=== PATIENT | female | born 1975 | race African-American/Black ===

== ENCOUNTER 2016-09-03 07:15 | Emergency (ER) | payer SELFPAY ==
[~2016-09-03] VITALS: Ht 152.4 cm; Wt 60.0 kg
[~2016-09-03 07:15] MED LIST: AMLO5 PO; CLIN1CAP6 PO; FOLI1 PO; LEVE500 PO; LISI-360 PO; QUET100 PO; RIVA20 PO
[2016-09-03] MEDS ORDERED: SODIUM CHLOR 0.9% 1000 ML INJ 1,000 ML IV ONE (07:25)
[2016-09-03 07:27] VITALS: BP 137/94; PULSE 87; RESP 17; TEMP 98.3; O2SAT 93
[2016-09-03] MEDS ORDERED: SODIUM CHLORIDE 0.9% FLUSH 5 ML FLUSH IVF PRN ×2 (07:30)
[2016-09-03] MEDS ORDERED: PHENYTOIN INJ 1,000 MG in SODIUM CHLORIDE 0.9% INJ 100 ML IV ONE (07:30)
--- NOTE | 2016-09-03 07:34 | PD ---
HPI Chief Complaint: Seizure Time Seen by Provider: 07:24 Travel History International Travel<30 days: No (is available) Contact w/Intl Traveler<30days: No ( or) History of Present Illness HPI Patient is a 41-year-old female who presents to emergency room after possible seizure episode. Patient reports that she has history of seizures and is supposed be on Dilantin, reports that she has not been on her medications. As per EMS, patient was found by her roommate after witnessed seizure episode. Reports that patient fell off her mattress which was on the ground and had " full body shaking." Reports the episode lasted about 1 minute and resolved on its own. Patient was postictal after her seizure episode. Patient with no comments of urine. Patient reports that the last time she had a seizure was about one year ago. Patient with no other complaints. Patient denies fevers chills. Patient denies nausea vomiting. Patient denies chest pain. Patient with no other complaints. PFSH Past Medical History Hx Anticoagulant Therapy: Yes Arthritis: Yes Asthma: No Anxiety: Yes Depression: Yes Heart Rhythm Problems: Yes (Irregular heartbeat. ) Cancer: No Cardiovascular Problems: Yes High Cholesterol: No Chemotherapy: No Chest Pain: Yes Congestive Heart Failure: No Cirrhosis: Yes (LIVER) COPD: No Cerebrovascular Accident: No Diabetes: No Diminished Hearing: No Endocrine: No Gastrointestinal Disorders: Yes (HEPATITIS C) GERD: No Genitourinary: Yes (Kidney Stones ) Hepatitis: Yes (HEP C) Hiatal Hernia: Yes Hypertension: Yes Immune Disorder: No Kidney Stones: Yes Musculoskeletal: Yes (Arthritis ) Neurologic: Yes (Seizures) Psychiatric: Yes Reproductive: No Respiratory: Yes (Dyspnea ) Integumentary: Yes (ECZEMA, PSORIASIS, ) Immunizations Current: Yes Migraines: Yes Pancreatitis: Yes Radiation Therapy: No Renal Failure: No Schizophrenia: Yes Seizures: Yes (See EMR) Sickle Cell Disease: Yes (SICKLE CELL TRAIT PER PATIENT) Sleep Apnea: No Thyroid Disease: No Ulcer: Yes : 6 Para: 5 Miscarriage: 1 : 0 Ectopic : Yes (1992) Tubal Ligation: Yes (1997) Past Surgical History Abdominal Surgery: Yes (appendix, gallbladder) AICD: No Appendectomy: Yes () Arteriovenous Shunt: No Body Medical Devices: TONGUE PIERCING, NAVAL PIERCING - JEWELRY IN PLACE- UNABLE TO REMOVE Cardiac Surgery: No Cholecystectomy: Yes (2008) Ear Surgery: No Endocrine Surgery: No Eye Surgery: No Genitourinary Surgery: No Gynecologic Surgery: Yes (TUBAL, ECTOPIC) Insulin Pump: No Joint Replacement: No Oral Surgery: Yes (wisdom teeth, tonsils) Pacemaker: No Thoracic Surgery: No Tonsillectomy: Yes Other Surgery: Yes Social History Alcohol Use: Yes Tobacco Use: Yes Substance Use: Yes Allergies-Medications (Allergen,Severity, Reaction): Coded Allergies: Darvocet-N 100 (Verified Allergy, Severe, SWELLING, 07/26/16) Morphine (Verified Allergy, Severe, BREAKS OUT, 07/26/16) Motrin (Verified Allergy, Severe, ABD PAIN, 07/26/16) [place] (Verified Allergy, Severe, 07/26/16) itchingess and apparently swelling in her throat Nut Tree (Verified Allergy, Severe, 07/26/16) Solu-Medrol (Verified Allergy, Severe, BREAKS OUT, 07/26/16) Tomato (Verified Allergy, Severe, 07/26/16) *MDRO Multi-Drug Resistant Organism (Unverified Adverse Reaction, Unknown , 07/28/16) MRSA (blood/sputum) - 05/2011, (blood) - 04/2015, 03/2016; MRSA (face-07/26/16) Uncoded Allergies: NSAIDS (Allergy, Severe, SWELLING, 11/21/12) nuts (Allergy, Severe, 06/10/11) Reported Meds & Prescriptions Reported Meds & Active Scripts Active Clindamycin (Clindamycin HCl) 300 Mg Cap 450 Mg PO Q8H 10 Days Quetiapine [id number] M1 100 Mg Tab 100 Mg PO BID 7 Days Folate 1 Mg Tab (Folic Acid) 1 Mg Tab 1 Mg PO DAILY 31 Days Norvasc (Amlodipine Besylate) 5 Mg Tab 5 Mg PO DAILY 31 Days Xarelto 20 Mg T20 Mg 20 Mg Tab 20 Mg PO DAILY 70 Days Please begin this dose of Xarelto the day after you have completed twenty days of the 15mg dose of Xarelto Keppra (Levetriacetam) 500 Mg Tab 500 Mg PO Q12HR 60 Days Reported Lisinopril 10 mg (Lisinopril) 10 Mg Tab 1 Tab PO DAILY Review of Systems General / Constitutional: No: Fever Eyes: No: Visual changes HENT: No: Headaches Cardiovascular: No: Chest Pain or Discomfort Respiratory: No: Shortness of Breath Gastrointestinal: No: Abdominal Pain Genitourinary: No: Dysuria Musculoskeletal: No: Pain Skin: No Rash Neurologic: Positive: Headache, Seizures, No: Weakness Psychiatric: No: Depression Endocrine: No: Polydipsia Hematologic/Lymphatic: No: Easy Bruising Physical Exam Narrative GENERAL: No acute distress, nontoxic SKIN: Warm and dry. HEAD: Atraumatic. Normocephalic. EYES: Pupils equal and round. No scleral icterus. No injection or drainage. ENT: No nasal bleeding or discharge. Mucous membranes pink and moist. NECK: Trachea midline. No JVD. CARDIOVASCULAR: Regular rate and rhythm. No murmur appreciated. RESPIRATORY: No accessory muscle use. Clear to auscultation. Breath sounds equal bilaterally. GASTROINTESTINAL: Abdomen soft, non-tender, nondistended. Hepatic and splenic margins not palpable. MUSCULOSKELETAL: No obvious deformities. No clubbing. No cyanosis. No edema. NEUROLOGICAL: Awake and alert. No obvious cranial nerve deficits. Motor grossly within normal limits. Normal speech. Cranial nerves II-12 grossly intact with no obvious deficits PSYCHIATRIC: Appropriate mood and affect; insight and judgment normal. Data Data Last Documented VS Vital Signs Date Time Temp Pulse Resp B/P Pulse Ox O2 Delivery O2 Flow Rate FiO2 09/03/16 07:27 98.3 87 17 137/94 93 Orders Complete Blood Count With Diff (09/03/16 07:25) Phenytoin (Dilantin) (09/03/16 07:25) Drug Screen, Random Urine (09/03/16 07:25) Electrocardiogram (09/03/16 ) Blood Glucose (09/03/16 07:25) Ecg Monitoring (09/03/16 07:25) Iv Access Insert/Monitor (09/03/16 07:25) Oximetry (09/03/16 07:25) Comprehensive Metabolic Panel (09/03/16 07:25) Sodium Chloride 0.9% Flush (Ns Flush) (09/03/16 07:30) Phenytoin Inj (Dilantin Inj) (09/03/16 07:30) Ua Includes Microscopic (09/03/16 07:25) Sodium Chloride 0.9% Flush (Ns Flush) (09/03/16 07:30) Sodium Chlor 0.9% 1000 Ml Inj (Ns 1000 M (09/03/16 07:25) Ed Urine Pregnancytest Poc (09/03/16 07:25) Chest, Single Ap (09/03/16 09:30) Labs Laboratory Tests Test 09/03/16 08:00 White Blood Count 4.7 TH/MM3 Red Blood Count 3.81 MIL/MM3 Hemoglobin 12.5 GM/DL Hematocrit 36.3 % Mean Corpuscular Volume 95.2 FL Mean Corpuscular Hemoglobin 32.8 PG Mean Corpuscular Hemoglobin 34.4 % Concent Red Cell Distribution Width 15.6 % Platelet Count 339 TH/MM3 Mean Platelet Volume 7.9 FL Neutrophils (%) (Auto) 55.4 % Lymphocytes (%) (Auto) 36.7 % Monocytes (%) (Auto) 6.4 % Eosinophils (%) (Auto) 1.0 % Basophils (%) (Auto) 0.5 % Neutrophils # (Auto) 2.6 TH/MM3 Lymphocytes # (Auto) 1.7 TH/MM3 Monocytes # (Auto) 0.3 TH/MM3 Eosinophils # (Auto) 0.0 TH/MM3 Basophils # (Auto) 0.0 TH/MM3 CBC Comment DIFF FINAL Differential Comment Sodium Level 139 MEQ/L Potassium Level 4.5 MEQ/L Chloride Level 106 MEQ/L Carbon Dioxide Level 21.0 MEQ/L Anion Gap 12 MEQ/L Blood Urea Nitrogen 12 MG/DL Creatinine 1.02 MG/DL Estimat Glomerular Filtration 72 ML/MIN Rate Random Glucose 134 MG/DL Calcium Level 8.6 MG/DL Total Bilirubin 0.2 MG/DL Aspartate Amino Transf 31 U/L (AST/SGOT) Alanine Aminotransferase 28 U/L (ALT/SGPT) Alkaline Phosphatase 168 U/L Total Protein 8.2 GM/DL Albumin 3.2 GM/DL Phenytoin (Dilantin) Level LESS THAN 0.4 MCG/ML MDM Medical Decision Making Medical Screen Exam Complete: Yes Emergency Medical Condition: Yes Interpretation(s) EKG at 0741: Normal sinus rhythm at 85 beats minute, QT/QTc 382/424, nonspecific T-wave changes. No acute ST-T wave changes. Vital Signs Date Time Temp Pulse Resp B/P Pulse Ox O2 Delivery O2 Flow Rate FiO2 09/03/16 07:27 98.3 87 17 137/94 93 Differential Diagnosis Seizure, electrolyte abnormality, cephalgia, intracranial hemorrhage Narrative Course Patient is a 41-year-old female with history of seizure, presents to emergency room with possible episode of seizure this morning. Patient was found by her roommate on the ground, having "full body shaking" which lasted about 1 minute and resolved on its own. Patient did not fall from a bed, patient's mattress was on the ground and patient was sleeping on a mattress on the ground. Patient with history of seizures, reports that she is supposed to be on Dilantin but ran out of her medications. Patient placed on chemist inorganic as well as continuous pulse oximeter. Will give pt loading dose of dilantin. Plan to observe patient and ultimately discharge home on dilantin Upon chart review, patient was taking Keppra 500 mg every 12 hours for seizure, will restart pt on keppra pt with no acute distress at this time. All labs and all studies reviewed. Financial assistance was in room to help patient with outpatient follow-up. Patient is currently alert and oriented 3, patient currently at her baseline mental status. Patient will be sent home with instructions follow-up with primary care doctor and neurologist, she is to return to ER as needed. Patient stable for discharge Diagnosis Primary Impression: Seizure Patient Instructions: General Instructions Additional Instructions: Please return to ER as needed Please take your medications as prescribed Please follow-up with your primary care doctor as well as your neurologist as soon as possible Med/Other Pt SpecificInfo: Prescription(s) given Scripts Levetiracetam (Keppra)500 Mg Old201 Mg PO BID #60 TAB Ref 0 Prov:Sparkle Rosas DO 09/03/16 Disposition: 01 DISCHARGE HOME Condition: Stable Sparkle Rosas DO Sep 03, 2016 07:34
[2016-09-03 08:14] LABS: AUTOMATED NEUTROPHIL # 2.6 TH/MM3 (1.8-7.7); BASOPHIL % 0.5 % (0.0-2.0); HEMATOCRIT 36.3 % (35.0-46.0); HEMO FLAGS DIFF FINAL; LYMPH % 36.7 % (9.0-44.0); LYMPHOCYTE # 1.7 TH/MM3 (1.0-4.8); MEAN CELL VOLUME 95.2 FL (80.0-100.0); MEAN CORPUSCULAR HEMOGLOBIN 32.8 PG (27.0-34.0); MEAN CORPUSCULAR HGB CONC 34.4 % (32.0-36.0); MONO % 6.4 % (0.0-8.0); NEUT % 55.4 % (16.0-70.0); PLATELET COUNT 339 TH/MM3 (150-450); RED BLOOD COUNT 3.81 MIL/MM3 (4.00-5.30); RED CELL DISTRIBUTION WIDTH 15.6 % (11.6-17.2); WHITE BLOOD COUNT 4.7 TH/MM3 (4.0-11.0)
[2016-09-03 08:30] LABS: ALT (GPT) 28 U/L (10-53); ANION GAP 12 MEQ/L (5-15); AST (GOT) 31 U/L (15-37); BLOOD UREA NITROGEN 12 MG/DL (7-18); CHLORIDE 106 MEQ/L (98-107); GLOMERULAR FILTRATION RATE 72 ML/MIN (>89); SODIUM (NA) 139 MEQ/L (136-145)
[2016-09-03 08:36] LABS: ALKALINE PHOSPHATASE 168 U/L (45-117); TOTAL BILIRUBIN ADULT 0.2 MG/DL (0.2-1.0)
[2016-09-03 08:42] LABS: POTASSIUM 4.5 MEQ/L (3.5-5.1)
[2016-09-03] MEDS ORDERED: LEVE500 PO (10:15)
--- NOTE | 2016-09-03 10:17 | RADRPT ---
EXAM DATE/TIME: 09/03/2016 09:34 [facility] COMPARISON: CHEST SINGLE AP, May 03, 2016, 13:34. INDICATIONS : Seizure today. MEDICAL HISTORY : Seizures SURGICAL HISTORY : None. ENCOUNTER: Initial ACUITY: 1 day PAIN SCORE: 0/10 LOCATION: Bilateral chest FINDINGS: Interval removal of a right-sided central line. A single view of the chest demonstrates the lungs to be symmetrically aerated without evidence of mas s, infiltrate or effusion. The cardiomediastinal contours are unremarkable. Osseous structures are intact. CONCLUSION: No acute disease. Estrella Parish MD on September 03, 2016 at 10:15 Board Certified Radiologist. This report was verified electronically.
[2016-09-03 11:17] VITALS: BP 144/79
--- NOTE | 2016-09-03 22:27 | EKG ---
Date Performed: 09/03/2016 Time Performed: 07:41:53 PTAGE: 41 years EKG: Sinus rhythm NONSPECIFIC T-WAVE ABNORMALITY BORDERLINE ECG PREVIOUS TRACING : 04/03/2016 18.53 Compared to prior tracing no significant change DOCTOR: Laci Pickard Interpretating Date/Time 09/03/2016 22:25:13
== END 2016-09-03 11:33 | disposition home or self-care (01) ==
LOC: NEPC 07:15
DX: R56.9 Unspecified convulsions (principal); I10 Essential (primary) hypertension; R94.31 Abnormal electrocardiogram [ECG] [EKG]; Z79.899 Other long term (current) drug therapy; Z91.14 Patient's other noncompliance with medication regimen; Z86.79 Personal history of other diseases of the circulatory system; Z87.19 Personal history of other diseases of the digestive system; Z86.19 Personal history of other infectious and parasitic diseases; Z87.442 Personal history of urinary calculi; Z87.39 Personal history of other diseases of the musculoskeletal system and connective tissue; Z86.69 Personal history of other diseases of the nervous system and sense organs; Z86.59 Personal history of other mental and behavioral disorders; Z87.2 Personal history of diseases of the skin and subcutaneous tissue; Z72.0 Tobacco use
CPT/HCPCS: 71010; 80053; 80185; 85025; 93005; 96365; 96366; 99284; J1165; J7030

== ENCOUNTER 2016-11-11 18:38 | Emergency (ER) | payer SELFPAY ==
[~2016-11-11] VITALS: Ht 152.4 cm; Wt 59.0 kg
[2016-11-11 18:38] VITALS: BP 136/85; PULSE 97; RESP 20; TEMP 97.9; O2SAT 98
[2016-11-11 20:51] VITALS: BP 133/96; PULSE 101; RESP 20; O2SAT 99
[2016-11-11] MEDS ORDERED: ONDANSETRON ODT 4 MG TAB PO ONE (22:45)
[2016-11-11 22:58] VITALS: RESP 22; O2SAT 98
[2016-11-11] MEDS ORDERED: SODIUM CHLORIDE 0.9% FLUSH 10 ML FLUSH IV FLUSH PRN (23:00)
[2016-11-11] MEDS ORDERED: HYDROmorphone HCL PF 1 MG/ML VIAL IV PUSH ONE (23:00)
[2016-11-11] MEDS ORDERED: SODIUM CHLOR 0.9% 1000 ML INJ 1,000 ML IV ONE (23:00)
--- NOTE | 2016-11-11 23:01 | PD ---
HPI Chief Complaint: GI Complaint Time Seen by Provider: 22:49 Travel History International Travel<30 days: No Contact w/Intl Traveler<30days: No Traveled to known affect area: No History of Present Illness HPI 41yo F with PMH of seizure disorder on keppra, HTN presents to the ED with c/o NBNB vomiting, epigastric abdominal pain, nonbloody diarrhea since 6am today. States that she ate some oxtails before and no one else ate it. Denies any fever, chest pain, sob, focal weakness or numbness. PFSH Past Medical History Hx Anticoagulant Therapy: Yes Arthritis: Yes Asthma: No Anxiety: Yes Depression: Yes Heart Rhythm Problems: Yes (Irregular heartbeat. ) Cancer: No Cardiovascular Problems: Yes High Cholesterol: No Chemotherapy: No Chest Pain: Yes Congestive Heart Failure: No Cirrhosis: Yes (LIVER) COPD: No Cerebrovascular Accident: No Diabetes: No Diminished Hearing: No Endocrine: No Gastrointestinal Disorders: Yes (HEPATITIS C, GERD, Heartburn ) GERD: No Genitourinary: Yes (Kidney Stones ) Hepatitis: Yes (HEP C) Hiatal Hernia: Yes Hypertension: Yes Immune Disorder: No Kidney Stones: Yes Musculoskeletal: Yes (Arthritis ) Neurologic: Yes (Seizures) Psychiatric: Yes Reproductive: No Respiratory: Yes (Dyspnea ) Integumentary: Yes (ECZEMA, PSORIASIS, ) Immunizations Current: Yes Migraines: Yes Pancreatitis: Yes Radiation Therapy: No Renal Failure: No Schizophrenia: Yes Seizures: Yes (See EMR) Sickle Cell Disease: Yes (SICKLE CELL TRAIT PER PATIENT) Sleep Apnea: No Thyroid Disease: No Ulcer: Yes Tetanus Vaccination: < 5 Years Influenza Vaccination: Yes ?: Not LMP: SEP 2016 : 6 Para: 5 Miscarriage: 1 : 0 Ectopic : Yes (1992) Tubal Ligation: Yes (1997) Past Surgical History Abdominal Surgery: Yes (appendix, gallbladder) AICD: No Appendectomy: Yes () Arteriovenous Shunt: No Body Medical Devices: TONGUE PIERCING, NAVAL PIERCING - JEWELRY IN PLACE- UNABLE TO REMOVE Cardiac Surgery: No Cholecystectomy: Yes (2008) Ear Surgery: No Endocrine Surgery: No Eye Surgery: No Genitourinary Surgery: No Gynecologic Surgery: Yes (TUBAL, ECTOPIC) Insulin Pump: No Joint Replacement: No Neurologic Surgery: No Oral Surgery: Yes (wisdom teeth, tonsils) Pacemaker: No Thoracic Surgery: No Tonsillectomy: Yes Other Surgery: Yes Social History Alcohol Use: Yes (OCCASIONALLY) Tobacco Use: Yes Substance Use: Yes Allergies-Medications (Allergen,Severity, Reaction): Coded Allergies: Darvocet-N 100 (Verified Allergy, Severe, SWELLING, 07/26/16) Morphine (Verified Allergy, Severe, BREAKS OUT, 07/26/16) Motrin (Verified Allergy, Severe, ABD PAIN, 07/26/16) [place] (Verified Allergy, Severe, 07/26/16) itchingess and apparently swelling in her throat Nut Tree (Verified Allergy, Severe, 07/26/16) Solu-Medrol (Verified Allergy, Severe, BREAKS OUT, 07/26/16) Tomato (Verified Allergy, Severe, 07/26/16) *MDRO Multi-Drug Resistant Organism (Unverified Adverse Reaction, Unknown , 07/28/16) MRSA (blood/sputum) - 05/2011, (blood) - 04/2015, 03/2016; MRSA (face-07/26/16) Uncoded Allergies: NSAIDS (Allergy, Severe, SWELLING, 11/21/12) nuts (Allergy, Severe, 06/10/11) Reported Meds & Prescriptions Reported Meds & Active Scripts Active Zofran Odt (Ondansetron Odt) 4 Mg Tab 4 Mg SL Q8HR PRN Acetaminophen Extra Strength (Acetaminophen) 500 Mg Tab 500 Mg PO Q6H PRN Keppra (Levetiracetam) 500 Mg Tab 500 Mg PO BID Clindamycin (Clindamycin HCl) 300 Mg Cap 450 Mg PO Q8H 10 Days Quetiapine Fumarate 100 Mg Tab 100 Mg PO BID 7 Days Folate 1 Mg Tab (Folic Acid) 1 Mg Tab 1 Mg PO DAILY 31 Days Norvasc (Amlodipine Besylate) 5 Mg Tab 5 Mg PO DAILY 31 Days Xarelto 20 Mg Tab (Rivaroxaban) 20 Mg Tab 20 Mg PO DAILY 70 Days Please begin this dose of Xarelto the day after you have completed twenty days of the 15mg dose of Xarelto Keppra (Levetriacetam) 500 Mg Tab 500 Mg PO Q12HR 60 Days Reported Lisinopril 10 mg (Lisinopril) 10 Mg Tab 1 Tab PO DAILY Review of Systems Except as stated in HPI: all other systems reviewed are Neg Physical Exam Narrative GENERAL: 41yo F not in distress. SKIN: Warm and dry. HEAD: Atraumatic. Normocephalic. EYES: Pupils equal and round. No scleral icterus. No injection or drainage. ENT: No nasal bleeding or discharge. Mucous membranes pink and moist. NECK: Trachea midline. No JVD. CARDIOVASCULAR: Regular rate and rhythm. No murmur appreciated. RESPIRATORY: No accessory muscle use. Clear to auscultation. Breath sounds equal bilaterally. GASTROINTESTINAL: Abdomen soft, non-tender, nondistended. No rebound tenderness or guarding. MUSCULOSKELETAL: No obvious deformities. No clubbing. No cyanosis. No edema. NEUROLOGICAL: Awake and alert. No obvious cranial nerve deficits. Motor grossly within normal limits. Normal speech. PSYCHIATRIC: Appropriate mood and affect; insight and judgment normal. Data Data Last Documented VS Vital Signs Date Time Temp Pulse Resp B/P Pulse Ox O2 Delivery O2 Flow Rate FiO2 11/12/16 01:00 88 20 124/71 100 Room Air 11/11/16 18:38 97.9 Orders Ondansetron Odt (Zofran Odt) (11/11/16 22:45) Basic Metabolic Panel (Bmp) (11/11/16 22:54) Complete Blood Count With Diff (11/11/16 22:54) Lipase (11/11/16 22:54) Urinalysis - C+S If Indicated (11/11/16 22:54) Iv Access Insert/Monitor (11/11/16 22:54) Ecg Monitoring (11/11/16 22:54) Oximetry (11/11/16 22:54) Sodium Chloride 0.9% Flush (Ns Flush) (11/11/16 23:00) Electrocardiogram (11/11/16 22:54) Sodium Chlor 0.9% 1000 Ml Inj (Ns 1000 M (11/11/16 23:00) Hydromorphone Pf Inj (Dilaudid Pf Inj) (11/11/16 23:00) Hydromorphone Pf Inj (Dilaudid Pf Inj) (11/12/16 00:15) Metoclopramide Inj (Reglan Inj) (11/12/16 00:15) Troponin I (11/12/16 00:07) Ed Urine Pregnancytest Poc (11/12/16 00:46) Labs Laboratory Tests Test 11/11/16 11/12/16 23:00 00:50 White Blood Count 8.5 TH/MM3 Red Blood Count 4.03 MIL/MM3 Hemoglobin 13.7 GM/DL Hematocrit 40.2 % Mean Corpuscular Volume 99.7 FL Mean Corpuscular Hemoglobin 33.9 PG Mean Corpuscular Hemoglobin 34.0 % Concent Red Cell Distribution Width 13.5 % Platelet Count 246 TH/MM3 Mean Platelet Volume 8.5 FL Neutrophils (%) (Auto) 89.9 % Lymphocytes (%) (Auto) 7.5 % Monocytes (%) (Auto) 2.3 % Eosinophils (%) (Auto) 0.0 % Basophils (%) (Auto) 0.3 % Neutrophils # (Auto) 7.6 TH/MM3 Lymphocytes # (Auto) 0.6 TH/MM3 Monocytes # (Auto) 0.2 TH/MM3 Eosinophils # (Auto) 0.0 TH/MM3 Basophils # (Auto) 0.0 TH/MM3 CBC Comment DIFF FINAL Differential Comment Sodium Level 134 MEQ/L Potassium Level 4.6 MEQ/L Chloride Level 96 MEQ/L Carbon Dioxide Level 24.1 MEQ/L Anion Gap 14 MEQ/L Blood Urea Nitrogen 12 MG/DL Creatinine 0.95 MG/DL Estimat Glomerular Filtration 78 ML/MIN Rate Random Glucose 191 MG/DL Calcium Level 9.4 MG/DL Lipase 55 U/L Troponin I LESS THAN 0.02 NG/ML Urine Color YELLOW Urine Turbidity CLEAR Urine pH 6.5 Urine Specific [place] 1.024 Urine Protein 300 mg/dL Urine Glucose (UA) 150 mg/dL Urine Ketones 150 mg/dL Urine Occult Blood LARGE Urine Nitrite NEG Urine Bilirubin NEG Urine Urobilinogen LESS THAN 2.0 MG/DL Urine Leukocyte Esterase NEG Urine RBC 1 /hpf Urine WBC 2 /hpf Urine Squamous Epithelial 3 /hpf Cells Urine Hyaline Casts 1 /lpf Urine Mucus FEW /lpf Microscopic Urinalysis Comment CULT NOT INDICATED MDM Medical Decision Making Medical Screen Exam Complete: Yes Emergency Medical Condition: Yes Interpretation(s) EKG: NSR 79bpm. Normal axis. TWI III, V2, V3. Laboratory Tests Test 11/11/16 11/12/16 23:00 00:50 White Blood Count 8.5 TH/MM3 (4.0-11.0) Red Blood Count 4.03 MIL/MM3 (4.00-5.30) Hemoglobin 13.7 GM/DL (11.6-15.3) Hematocrit 40.2 % (35.0-46.0) Mean Corpuscular Volume 99.7 FL (80.0-100.0) Mean Corpuscular Hemoglobin 33.9 PG (27.0-34.0) Mean Corpuscular Hemoglobin 34.0 % Concent (32.0-36.0) Red Cell Distribution Width 13.5 % (11.6-17.2) Platelet Count 246 TH/MM3 (150-450) Mean Platelet Volume 8.5 FL (7.0-11.0) Neutrophils (%) (Auto) 89.9 % (16.0-70.0) Lymphocytes (%) (Auto) 7.5 % (9.0-44.0) Monocytes (%) (Auto) 2.3 % (0.0-8.0) Eosinophils (%) (Auto) 0.0 % (0.0-4.0) Basophils (%) (Auto) 0.3 % (0.0-2.0) Neutrophils # (Auto) 7.6 TH/MM3 (1.8-7.7) Lymphocytes # (Auto) 0.6 TH/MM3 (1.0-4.8) Monocytes # (Auto) 0.2 TH/MM3 (0-0.9) Eosinophils # (Auto) 0.0 TH/MM3 (0-0.4) Basophils # (Auto) 0.0 TH/MM3 (0-0.2) CBC Comment DIFF FINAL Differential Comment Sodium Level 134 MEQ/L (136-145) Potassium Level 4.6 MEQ/L (3.5-5.1) Chloride Level 96 MEQ/L (98-107) Carbon Dioxide Level 24.1 MEQ/L (21.0-32.0) Anion Gap 14 MEQ/L (5-15) Blood Urea Nitrogen 12 MG/DL (7-18) Creatinine 0.95 MG/DL (0.50-1.00) Estimat Glomerular Filtration 78 ML/MIN (>89) Rate Random Glucose 191 MG/DL (74-106) Calcium Level 9.4 MG/DL (8.5-10.1) Lipase 55 U/L (73-393) Troponin I LESS THAN 0.02 NG/ML (0.02-0.05) Urine Color YELLOW (YELLW/STRAW) Urine Turbidity CLEAR (CLEAR) Urine pH 6.5 (5.0-8.5) Urine Specific [place] 1.024 (1.002-1.035) Urine Protein 300 mg/dL (NEG-TRACE) Urine Glucose (UA) 150 mg/dL (NEG) Urine Ketones 150 mg/dL (NEG) Urine Occult Blood LARGE (NEG) Urine Nitrite NEG (NEG) Urine Bilirubin NEG (NEG) Urine Urobilinogen LESS THAN 2.0 MG/DL (LESS THAN 2.0) Urine Leukocyte Esterase NEG (NEG) Urine RBC 1 /hpf (0-3) Urine WBC 2 /hpf (0-5) Urine Squamous Epithelial 3 /hpf (0-5) Cells Urine Hyaline Casts 1 /lpf (RARE) Urine Mucus FEW /lpf (OCC) Microscopic Urinalysis Comment CULT NOT INDICATED Differential Diagnosis Pancreatitis vs. gastroenteritis vs. atypical ACS vs. malingering Narrative Course 41yo F with abdominal pain, vomiting and diarrhea today. Pt's abdominal exam is really unremarkable. Pt was given zofran 4mg IV and states she continues to vomit. Pt states she is allergic to NSAIDs, toradol, morphine and every time she comes, she gets dilaudid. Labs reviewed, no leukocytosis. Lipase is not elevated. Glucose is 191. EKG showed some anterior ischemia but pt has no chest pain or sob and troponin is negative. Urine negative. Pt tolerating PO in the ED after zofran and reglan and abdominal pain has resolved after 0.5mg of dilaudid. UA showed ketones and blood. No culture indicated. Return precautions given. Diagnosis Primary Impression: Gastroenteritis Patient Instructions: General Instructions Departure Forms: Tests/Procedures Additional Instructions: Please follow up with your PMD in 3-7 days. Return to the ED if symptoms worsen. Med/Other Pt SpecificInfo: Prescription(s) given Scripts Ondansetron Odt (Zofran Odt)4 Mg Tab4 Mg SL Q8HR PRN (Nausea/Vomiting) #7 TAB Ref 0 Prov:Idania Gutierrez 11/12/16 Acetaminophen (Acetaminophen Extra Strength)500 Mg [id number] Mg PO Q6H PRN (PAIN SCALE 1 TO 4) #20 TAB Ref 0 Prov:Idania Gutierrez 11/12/16 Disposition: 01 DISCHARGE HOME Condition: Stable Idania Gutierrez DO Nov 11, 2016 23:01
[2016-11-11 23:17] LABS: AUTOMATED NEUTROPHIL # 7.6 TH/MM3 (1.8-7.7); BASOPHIL % 0.3 % (0.0-2.0); HEMATOCRIT 40.2 % (35.0-46.0); HEMO FLAGS DIFF FINAL; LYMPH % 7.5 % (9.0-44.0); LYMPHOCYTE # 0.6 TH/MM3 (1.0-4.8); MEAN CELL VOLUME 99.7 FL (80.0-100.0); MEAN CORPUSCULAR HEMOGLOBIN 33.9 PG (27.0-34.0); MONO % 2.3 % (0.0-8.0); NEUT % 89.9 % (16.0-70.0); PLATELET COUNT 246 TH/MM3 (150-450); RED BLOOD COUNT 4.03 MIL/MM3 (4.00-5.30); RED CELL DISTRIBUTION WIDTH 13.5 % (11.6-17.2); WHITE BLOOD COUNT 8.5 TH/MM3 (4.0-11.0)
[2016-11-11 23:55] LABS: BICARBONATE 24.1 MEQ/L (21.0-32.0)
[2016-11-11 23:56] LABS: POTASSIUM 4.6 MEQ/L (3.5-5.1)
[2016-11-12] MEDS ORDERED: HYDROmorphone HCL PF 1 MG/ML VIAL IV PUSH ONE (00:15)
[2016-11-12] MEDS ORDERED: METOCLOPRAMIDE INJ 10 MG in SODIUM CHLORIDE 0.9% INJ 50 ML IV ONE (00:15)
[2016-11-12] MEDS ORDERED: ACET500T36 PO (00:36)
[2016-11-12 01:00] VITALS: BP 124/71; PULSE 88; RESP 20; O2SAT 100
[2016-11-12 01:11] LABS: BLOOD, URINE LARGE (NEG); GLUCOSE,URINE 150 mg/dL (NEG); HYALINE CAST, URINE 1 /lpf (RARE); KETONE, URINE 150 mg/dL (NEG); MUCUS URINE FEW /lpf (OCC); NITRITE,URINE NEG (NEG); PH, URINE 6.5 (5.0-8.5); SQUAMOUS EPITHELIAL CELL URINE 3 /hpf (0-5); URINE COLOR YELLOW (YELLW/STRAW)
[2016-11-12 01:16] LABS: COMMENT (UR) CULT NOT INDICATED; CULTURE IF INDICATED CULT NOT INDICATED
[2016-11-12] MEDS ORDERED: ZOFR4TAB3 SL (01:21)
--- NOTE | 2016-11-12 09:31 | EKG ---
Date Performed: 11/11/2016 Time Performed: 23:23:12 PTAGE: 41 years EKG: Sinus rhythm POSSIBLE LEFT ATRIAL ENLARGEMENT ST DEVIATION AND MODERATE T-WAVE ABNORMALITY, CONSIDER ANTERIOR ISC HEMIA ABNORMAL ECG PREVIOUS TRACING : 09/03/2016 07.41 DOCTOR: Bhaskar Casillas Interpretating Date/Time 11/12/2016 09:30:36
== END 2016-11-12 02:48 | disposition home or self-care (01) ==
LOC: NEPA 18:38
DX: K52.9 Noninfective gastroenteritis and colitis, unspecified (principal); I10 Essential (primary) hypertension; G40.909 Epilepsy, unspecified, not intractable, without status epilepticus; Z72.0 Tobacco use
CPT/HCPCS: 80048; 81001; 83690; 84484; 84703; 85025; 93005; 96361; 96374; 96375; 99284; J1170; J2765; J7030